=== PATIENT | male | born 1995 | race Caucasian/White ===

== ENCOUNTER 2017-04-02 03:51 | Emergency (ER) | payer MEDICAID ==
[~2017-04-02] VITALS: Ht 170.2 cm; Wt 62.0 kg
[~2017-04-02 03:51] MED LIST: NONE REPORTED
[2017-04-02 12:00] VITALS: BP 121/70
== END 2017-04-02 12:55 | disposition home or self-care (01) ==
LOC: ER 03:51
DX: B35.3 Tinea pedis (principal); L03.116 Cellulitis of left lower limb; L03.115 Cellulitis of right lower limb; F20.9 Schizophrenia, unspecified
CPT/HCPCS: 99283